=== PATIENT | female | born 1970 | race Caucasian/White ===

== ENCOUNTER 2017-03-10 10:17 | Emergency (ER) | payer OTHER, SELFPAY ==
[2017-03-10 10:45] LABS: #Basophils 0.1 thou/uL (0.0-0.2); #Eosinphils 0.3 thou/uL (0.0-0.7); #Monocytes 0.6 thou/uL (0.11-0.59); #Neutrophils 8.9 thou/uL (1.40-6.50); %Basophils 0.6 % (0.0-1.0); %Eosinophils 1.8 % (0.0-10.0); %Lymphocytes 29.2 % (21.0-51.0); %Monocytes 4.2 % (0.0-10.0); Hematocrit 44.5 % (36.0-47.0); Mean Platelet Volume 6.2 fL (7.4-10.4); Red Blood Cell (RBC) Count 5.06 mill/uL (4.20-5.40); White Blood Cell (WBC) Count 13.8 thou/uL (4.8-10.8)
[2017-03-10 11:10] LABS: ALT (SGPT) 14 U/L (8-55); AST (SGOT) 17 U/L (5-34); Alkaline Phosphatase 105 U/L (40-150); Anion Gap 10 mmol/L (10-20); BUN (Urea Nitrogen) 20 mg/dL (7.0-18.7); Bilirubin, Total 0.6 mg/dL (0.2-1.2); CK (CPK) 40 U/L (29-168); Calc. Creatinine Clearance 0 mL/min (70-130); Calcium 9.6 mg/dL (7.8-10.44); Carbon Dioxide 25 mmol/L (22-29); Chloride 107 mmol/L (98-107); Estimated GFR-MDRD 71; Globulin 4.1 g/dL (2.4-3.5); Protein, Total 8.1 g/dL (6.0-8.3)
[2017-03-10 11:13] LABS: Troponin I Less than 0.010 ng/mL (< 0.028)
--- NOTE | 2017-03-10 11:24 | RAD ---
1 VIEW CHEST: Date: 03/10/17 HISTORY: Chest pain. COMPARISON: 09/22/16. FINDINGS: Normal cardiac silhouette. Pulmonary vessels and hilum are normal. No masses. No consolidation. No os seous abnormalities. No pneumothorax. IMPRESSION: No acute cardiopulmonary process. POS: [facility]
[2017-03-10] MEDS ORDERED: Ketorolac Tromethamine 30 MG/ML VIAL ONE (12:09)
[2017-03-10] MEDS ORDERED: Metoclopramide HCl 10 MG/2 ML VIAL ONE (12:09)
--- NOTE | 2017-03-10 14:09 | CT ---
CT HEAD WITHOUT CONTRAST: Multiple axial tomograms obtained through the head without IV enhancement. HISTORY: Left arm weakness. Headache. FINDINGS: Ventricles have normal size and position. There is no evidence of intracranial mass or hemorrhage. No evidence of infarct. IMPRESSION: No acute abnormality identified. POS: [facility]
== END 2017-03-10 14:20 | disposition home or self-care (01) ==
LOC: ERS 10:17
DX: R07.9 Chest pain, unspecified (principal); M79.602 Pain in left arm; E66.9 Obesity, unspecified; K21.9 Gastro-esophageal reflux disease without esophagitis; Z79.82 Long term (current) use of aspirin; Z79.899 Other long term (current) drug therapy
CPT/HCPCS: 70450; 71010; 80053; 82550; 82553; 84484; 85025; 93005; 96374; 96375; J1885; J2765

== ENCOUNTER 2017-05-24 12:08 | Emergency (ER) | payer SELFPAY ==
[2017-05-24] MEDS ORDERED: Lorazepam 2 MG/ML VIAL ONE (12:42)
[2017-05-24] MEDS ORDERED: Fentanyl 100 MCG/2 ML VIAL ONE (12:42)
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
== END 2017-05-24 13:33 | disposition home or self-care (01) ==
LOC: ERS 12:08
DX: S16.1XXA Strain of muscle, fascia and tendon at neck level, initial encounter (principal); K21.9 Gastro-esophageal reflux disease without esophagitis; I10 Essential (primary) hypertension; V89.2XXA Person injured in unspecified motor-vehicle accident, traffic, initial encounter
CPT/HCPCS: 71045; 72125; 96372; J2060; J3010

== ENCOUNTER 2017-09-27 13:19 | Emergency (ER) | payer SELFPAY ==
[2017-09-27] MEDS ORDERED: Metoclopramide HCl 10 MG/2 ML VIAL ONE (14:40)
[2017-09-27] MEDS ORDERED: diphenhydrAMINE 50 MG/ML VIAL ONE (14:40)
[2017-09-27] MEDS ORDERED: Ondansetron ODT 4 MG TAB ONE (14:40)
== END 2017-09-27 15:57 | disposition home or self-care (01) ==
LOC: ERS 13:19
DX: R51 Headache (principal); I10 Essential (primary) hypertension; K21.9 Gastro-esophageal reflux disease without esophagitis; G43.909 Migraine, unspecified, not intractable, without status migrainosus
CPT/HCPCS: 96365; 96375; J1200; J2765; Q0162

== ENCOUNTER 2019-09-11 16:24 | Emergency (ER) | payer OTHER, SELFPAY ==
[~2019-09-11 16:24] MED LIST: Iopamidol-370 76% 500 ML 1 ML ONE
[2019-09-11 17:11] LABS: #Basophils 0.1 thou/uL (0.0-0.2); #Eosinphils 0.3 thou/uL (0.0-0.7); #Lymphocytes 3.2 thou/uL (1.20-3.40); #Monocytes 0.7 thou/uL (0.11-0.59); %Basophils 0.5 % (0.0-1.0); %Eosinophils 2.2 % (0.0-10.0); %Lymphocytes 26.1 % (21.0-51.0); %Monocytes 5.5 % (0.0-10.0); %Neutrophils 65.7 % (42.0-75.0); Hemoglobin 14.2 g/dL (12.0-16.0); Mean Corpuscular HGB CONC 32.7 g/dL (32.0-36.0); Mean Corpuscular Hemoglobin 28.2 pg (27.0-31.0); Mean Corpuscular Volume 86.2 fL (78.0-98.0); Mean Platelet Volume 7.2 fL (7.4-10.4); Platelet Count 295 thou/uL (130-400); RBC Distribution Width 12.1 % (11.5-14.5); Red Blood Cell (RBC) Count 5.06 mill/uL (4.20-5.40); White Blood Cell (WBC) Count 12.1 thou/uL (4.8-10.8)
[2019-09-11] MEDS ORDERED: Fentanyl 100 MCG/2 ML VIAL ONE (17:22)
[2019-09-11] MEDS ORDERED: Ondansetron PF 4 MG/2 ML Vial ONE (17:22)
[2019-09-11 17:35] LABS: ALT (SGPT) 9 U/L (8-55); AST (SGOT) 14 U/L (5-34); Alkaline Phosphatase 102 U/L (40-110); Anion Gap 16 mmol/L (10-20); BUN (Urea Nitrogen) 14 mg/dL (7.0-18.7); Bilirubin, Total 0.6 mg/dL (0.2-1.2); Calc. Creatinine Clearance 0 mL/min (70-130); Calcium 9.2 mg/dL (7.8-10.44); Carbon Dioxide 24 mmol/L (22-29); Chloride 103 mmol/L (98-107); Estimated GFR-MDRD 50; Globulin 3.7 g/dL (2.4-3.5); Glucose 102 mg/dL (70-105); Lipase 19 U/L (8-78); Potassium 3.4 mmol/L (3.5-5.1); Protein, Total 7.7 g/dL (6.0-8.3); Sodium 140 mmol/L (136-145)
[2019-09-11 18:14] LABS: Bilirubin Negative (Negative); Blood, Urine 2+ (Negative); Clarity Clear (Clear); Glucose, Urine (Dipstick) Normal (Negative); Leukocyte 75 Leu/uL (Negative); Mucous/LPF Rare LPF (<2+); Nitrite Negative (Negative); Protein, Urine (Dipstick) 20 mg/dL (Neg-Trace); Squamous Epithelial 0-3 HPF (0-3); Urobilinogen Normal mg/dL (Less than 2)
[2019-09-11 18:23] LABS: Bacteria/HPF Rare-Few HPF (None Seen)
--- NOTE | 2019-09-11 18:27 | CT ---
CT ABDOMEN AND PELVIS WITH CONTRAST: 09/11/19 HISTORY: Right lower quadrant pain. COMPARISON: None. FINDINGS: The lung bases are clear. No pericardial effusion. Normal proximal small bowel rotation. Moderate right sided hydroureteronephrosis due to a mid ureteral obstructing calculus measuring 4 x 7 mm. There is mild asymmetric decreased enhancement of the right kidney relative to the left kidney. Mild right sided perinephric stranding. No other calculus seen within the right renal collecting sys tem. No other calculus in the left renal collecting system. This stone is near the right adnexa. No c alculus within the urinary bladder. Moderate facet arthrosis lower lumbar spine. No acute osseous abnormality. The spleen has a few calci fied granulomas. The liver is unremarkable as well as the pancreas. Adrenal glands are unremarkable. IMPRESSION: 1. Partially obstructing 4 x 7 mm calculus right mid ureter near the adnexa with asymmetric decr eased right sided renal enhancement and low grade perinephric stranding. 2. No other calculus within the renal collecting system or ureters. POS: [facility]
[2019-09-11] MEDS ORDERED: Ketorolac Tromethamine 30 MG/ML VIAL ONE (19:01)
== END 2019-09-11 19:30 | disposition home or self-care (01) ==
LOC: ERS 16:24
DX: N13.2 Hydronephrosis with renal and ureteral calculous obstruction (principal); I10 Essential (primary) hypertension; K21.9 Gastro-esophageal reflux disease without esophagitis; G43.909 Migraine, unspecified, not intractable, without status migrainosus
CPT/HCPCS: 74177; 80053; 81003; 81015; 83690; 85025; 87086; 96374; 96375; J1885; J2405; J3010; Q9967